=== PATIENT | female | born 1990 | race Asian ===

== ENCOUNTER 2019-02-05 06:18 | Inpatient (IN) | payer OTHER ==
[2019-02-05] VITALS (9 sets, daily range): BP systolic 89–106; BP diastolic 51–69; PULSE 62–85; TEMP 97.8–98.3
[~2019-02-05] VITALS: Ht 169 cm; Wt 95.5 kg
[~2019-02-05 06:18] MED LIST: MOTRIN 800800 MG/TAB PO; PERCOCET 325 MG1 TA2 PO; PRENATAL PO
--- NOTE | 2019-02-05 19:15 | NUR ---
HERE FOR CYTOTEC INDUCTION WITH SPOUSE AND 4 YR OLD SON PRESENT.ADMISSION PROCEEDURES STARTED.
[2019-02-05 21:32] LABS: BASO % 0.4 % (0.0-2.0); EOS # 0.1 (0.0-0.7); EOS % 1.3 % (0-4.0); GRAN # 4.8 (1.4-6.5); GRAN % 58.7 % (42.2-75.2); HEMATOCRIT 37.5 % (37.0-47.0); HEMOGLOBIN 12.6 g/dl (12.5-16.0); LYMPH # 2.4 (1.2-3.4); LYMPH % 29.7 % (20.0-51.0); MEAN CELL VOLUME 92 fl (80.0-100.0); MEAN CORPUSCULAR HEMOGLOBIN 31 pg (27.0-31.0); MEAN CORPUSCULAR HGB CONC 34 g/dl (33.0-37.0); MEAN PLATELET VOLUME 10.5 fl (7.4-10.4); MONO # 0.7 (0.1-0.6); MONO % 7.9 % (1.7-9.3); PLATELET COUNT 188 K/mm3 (130-400); RED BLOOD COUNT 4.07 M/mm3 (4.10-5.30); REDCELL DISTRIBUTION WIDTH-CV 13.4 % (11.5-14.5)
--- NOTE | 2019-02-05 21:53 | NUR ---
VERY ACTIVE BABY WITH FHR BASELINE 130 ACCELS TO 180
[2019-02-06] VITALS (55 sets, daily range): BP systolic 81–122; BP diastolic 45–82; PULSE 55–85; TEMP 97.2–98.5
--- NOTE | 2019-02-06 00:01 | NUR ---
TRACING REVIEWED WITH DR POE HERE AT L/D. WILL NOTIFY DR ALEXANDER AT 0030 PRIOR TO NEXT CYTOTEC PLACEMENTT
--- NOTE | 2019-02-06 00:30 | NUR ---
SVE PT DOES NOT TOLERATE EXAM WELL. GUARDED, CLOSES LEGS TIGHTLY,UNABLE TO REACH CERIX
--- NOTE | 2019-02-06 01:52 | NUR ---
SLEEPS BETWEEN DISTURBANCES. HAD A SINGLE ISOLATED LATE DECEL. UP TO VOID.
--- NOTE | 2019-02-06 07:08 | NUR ---
0645 PT RESTING AND DENIES PAIN FROM CONTRACTION. REQUESTED TO EAT FOOD, TOLD ONLY CLEAR LIQUIDS ORDERED. OMER OFFERED AND ACCEPTED.
--- NOTE | 2019-02-06 07:51 | NUR ---
8290 DR ALEXANDER CALLS IN FOR UPDATE ON PT. REPORT GIVEN THAT NO FURTHER DECELS NOTED AND NO REAL CONTRACTIONS FELT BY PT. FHR SHOWS REACTIVE PATTERN. PHONE ORDERS FOR START OF PITOCIN PER PROTOCOL GIVEN AND REPEATED BACK.
--- NOTE | 2019-02-06 09:35 | NUR ---
0910 ASSISTED TO BR TO VOID AND THEN BACK TO SIT IN ROCKER PER PT REQUEST. DENIES FEELING CONRACTIONS. FETUS ACTIVE AND MOVEMENT FELT BY MOM.
--- NOTE | 2019-02-06 10:25 | NUR ---
1000 REMAINS SITTING UP IN ROCKER. SPOUSE AT SIDE AND SUPPORTIVE. DENIES FEELIGN CONTRACTIONS.
--- NOTE | 2019-02-06 11:04 | NUR ---
1045 ASSISTED TO BR TO VOID AND THENTO BED FOR SVE AND AROM BY DR ALEXANDER. PT TOLERATED FAIR.
--- NOTE | 2019-02-06 11:50 | NUR ---
1145 STATES FEELING CONTTRACTIONS NOW. DENIES NEED.
--- NOTE | 2019-02-06 12:54 | NUR ---
1245 CONTINUES TO REST AND DENIES NEEDS AT PRESENT TIME.
--- NOTE | 2019-02-06 13:01 | NUR ---
1300 STATES CONTRACTIONS PAINFUL BUT WANTS TO WAIT UNTIL SPOUSE HAS RETURNED BEFORE GETTING EPIDURAL PLACED. CORRECTIONAL PROGRAM OFFICER NOTIFIED.
--- NOTE | 2019-02-06 14:41 | NUR ---
1310 PT REQUESTING EPIDURAL PLACMENT. PETROLEUM SAMPLER NOTIFIED AND IV FLUIDS BOLUS STARTED. 1315 LR #3 WILLI.
--- NOTE | 2019-02-06 14:43 | NUR ---
1318 PT SET UP ON EDGE OF BED FOR CATH PLACEMENT. 1323 NEEDLE/CATH PLACED. 1324 TEST DOSE GIVENAND TOLERATED WELL BY PT. 1330 PT REPOSITIONED IN BED WITH PILLOW UNDER R HIP. TRANSPORT TECHNICIAN CONTROL EXPLAINED.
--- NOTE | 2019-02-06 14:46 | NUR ---
1338 FHR DOWN TO [phone] REPOSITIONED IN BED TO RL SIDE. 1345 SLIGHT CHANGE IN FHR, NOW AT 110-115 FOR BASELINE. PITOCIN STOPPED AND O2 ON PER MASK AT 10L/MIN. 1349 FHR DOWN TO 85, MOVED TO LL SIDE WITH BASELINE NOW 100-110.
--- NOTE | 2019-02-06 14:53 | NUR ---
1355 PT ASSISTED TO KNEE CHEST WITH HELP FOR ANOTHER RN AND SPOUSE. 1358 FSE APPLIED, WITH GOOD TRACING NOTED. 1400 DR ALEXANDER CALLED ON CELL PHONE ANDN CHEMISTRY LABORATORY TECHNICIAN ANSWERS. MESSAGE OF PT STATUS AND TO RETURN CALL. 1405 DR ALEXANDER CALLS BACK AND REPORT GIVEN RELTAED TO EPIDRUAL, DROP IN FHR BASELINE, PITOCIN OFF AND O2 ON WITH PT IN KNEE CHEST.
--- NOTE | 2019-02-06 14:59 | NUR ---
1408 EPHEDERINE 10MCG GIVEN IVP FOR DROP IN BP. 1415 BP IMPROVED BUT FHR PATTERN UNCHANGED. LR#4 WILLI.
--- NOTE | 2019-02-06 15:05 | NUR ---
1420 SECOND DOSE EPHEDERINE GIVEN WITH NO REAL CHANGE IN BP OR FHR PATTERN. 1425 DR ALEXANDER OFFICE NURSE GIVEN BRIEF REMADHURI AND ASKED TO RETURN CALL. 1428 DR ALEXANDER CALLS BACK AND REPORT GIVEN. REVIEWING STRIP. 1430 PT TO LL POSITION AND SVE SHOW PT NOW 8-9 BUT STILL ONLY 80-90% EFFACED AND STILL -1 TO -2 STATION. PHONE ORDER TO HAVE PT CONTINUE TO REST AND LEAVE PITOCIN OFF AND O2 ON. CONTNIUE TO OBSERVE PT.
--- NOTE | 2019-02-06 15:10 | NUR ---
1445 PT CONTINUES TO REST WITH NO REAL CHANGE IN FHR PATTERN.
--- NOTE | 2019-02-06 15:12 | NUR ---
1450 DR ALEXANDER CALLS IN FOR STATUS REPORT. GIVEN. PT REQUESTS TO HAS PT CONTINUE TO REST FOR NOW AND TO BE RECHECKED AROUND 1515 TO 1530. 1500 PT INFORMED OF PLAN AND VERBALIZES UNDERSTANDING AND ACCEPTANCE OF SAME.
--- NOTE | 2019-02-06 17:20 | NUR ---
1530 MO CTH PLACED EASILY AND DRAINING CLEAR YELLOW URINE. SVE SHOWS PT NOW COPLETE. 1535 DR ALEXANDER NOTIFIED VIA CELL PHONE. WILL PUSH PT AND CALL WHEN NEEDED.
--- NOTE | 2019-02-06 17:23 | NUR ---
1545 MO CATH PULLED AND INSTRUCTIONS ON PUSHING REVIEWED WITH PT AND SPOUSE.
--- NOTE | 2019-02-06 17:25 | NUR ---
1500 PUSHING WITH PT. 1551 FHR DOWN TO 70-80 WITH PUSHING AND SLOW RETURN TO BASELINE OVER NEST [address] BENJAMIN CALLED AND REPORT ON FHR GIVEN. ASKED TO COME FOR DELIVERY. 1558 CONTINUING TO PUSH WITH EACH CONTRACTION. NSY NOTIFIED. 1600 PT CONITNUES TO PUSH WELL. WITH FHR DOWN TO 70 WITH EACH PUSH AND THEN RETURNS TO BASELINE. 1603 DR ALEXANDER ARRIVES AND CHECKS PT AND PT SET UP FOR DELIVERY.
--- NOTE | 2019-02-06 17:29 | NUR ---
1608 FHR DOWN TO 60-80'S FOR APPROXIMATELY 4 MINUTES, VACUUM OPTIONS EXPLAINED TO PT. ADDITIONAL STAFF NOTIFIED OF POSSIBLE SHOULDER DYSTOCIA. 2ND RN IN ROOM 1609 VAC APPLIED AND TRACTION APPLIED BY ME WITH PUSHING EFFORT BY MOM. ONE POP OFF AND THEN REAPPLIED. 1611 DELIVERY OF HEAD AND THEN SHOULDERS WITH ONE PUSH. SPONT RESP NOTED AND LUSTY GRY NOTED. PLACED ON MOM'S ABD AND DRIED AND WARM BLANKETS. CORD CLAMPED AND FOB CUTS CORD. 1615 PLACENTA DELIVERS SPONT AND INTACT. PITOCIN RESTARTED AT 333 mU/MIN. LARGE AMOUNT OF FREE FLOW WITH FUNDAL MASSAGE. 1620 METHERGINE 0.2 MG IM IN LAT WITH NOTICABLE IMPROVEMENT IN VAGINAL BLEEDING. 1625 REPAIR OF LACERATION STARTED. 1635 REPAIR COMPLETE AND ICE TO PERINEUM AND BED TOGETHER. INFANT IN MOM'S ARMS AFTER ASSESSMENT. 1655 MOTRIN 600 PO FOR CONTROL OF PAIN. TO BREAST EASILY AND STRONG SUCK NOTED.
--- NOTE | 2019-02-06 17:55 | NUR ---
1715 CONTINUES TONURSE INFANT. SWITCHED SIDES. SPOUSE LEAVES TO PLASTIC CARD GRADER CARDROOM SIBLING.
--- NOTE | 2019-02-06 17:56 | NUR ---
1745 NURSING INFANT. YAHAIRA LUONG.
[2019-02-07 00:10] VITALS: BP 96/54; PULSE 66; TEMP 98.3
[2019-02-07 04:05] VITALS: BP 105/64; PULSE 66; TEMP 97.8
--- NOTE | 2019-02-07 06:15 | NUR ---
Rests in bed, alert. Assumed care of patient. Denies any needs at this time.
[2019-02-07 08:15] VITALS: BP 110/62; PULSE 83; TEMP 97.6
--- NOTE | 2019-02-07 11:11 | NUR ---
Initial visit; Parents thanked for offering welcome and congratulations for the of their son. thanked them for choosing our hospital.
--- NOTE | 2019-02-07 11:20 | NUR ---
Rests in bed, alert. Request pain medication. Ibuprofen 600 mg given per request and as ordered.
--- NOTE | 2019-02-07 12:22 | NUR ---
It was charted patient recieved rhogam, charted on wrong patient.
[2019-02-07] MEDS ORDERED: MOTRIN 800800 MG/TAB PO (12:37)
[2019-02-07] MEDS ORDERED: PERCOCET 325 MG1 TA2 PO (12:38)
[2019-02-07 13:30] VITALS: BP 90/47; PULSE 76; TEMP 98.1
[2019-02-07 15:30] VITALS: BP 98/54; PULSE 85; TEMP 97.6
--- NOTE | 2019-02-07 15:30 | NUR ---
Baby bought to room per mom. Denies any needs at this time.
[2019-02-07 21:00] VITALS: BP 107/64; PULSE 83; TEMP 98.1
[2019-02-08 07:30] VITALS: BP 92/50; PULSE 80; TEMP 98.5
== END 2019-02-08 14:10 | disposition home or self-care (01) | DRG 807 ==
LOC: LDR 06:18 → OB 19:10 → LDR 19:10 → OB 02-06 19:30
PROVIDERS: ADMIT Obstetrics & Gynecology
PROC: 3E0DXGC Introduction of Other Therapeutic Substance into Mouth and Pharynx, External Approach (ICD-10-PCS; 2019-02-05)
PROC: 10D07Z6 Extraction of Products of Conception, Vacuum, Via Natural or Artificial Opening (ICD-10-PCS; principal; 2019-02-06)
PROC: 0KQM0ZZ Repair Perineum Muscle, Open Approach (ICD-10-PCS; 2019-02-06)
DX: O76 Abnormality in fetal heart rate and rhythm complicating labor and delivery (principal); Z37.0 Single live birth; O70.1 Second degree perineal laceration during delivery; O62.2 Other uterine inertia; O69.81X0 Labor and delivery complicated by cord around neck, without compression, not applicable or unspecified; Z3A.39 39 weeks gestation of pregnancy
CPT/HCPCS: J2210; J2590; J3105; J7120